=== PATIENT | female | born 1990 | race Caucasian/White ===

== ENCOUNTER 2022-09-15 02:32 | Emergency (ER) | payer MEDICAID, SELFPAY ==
[2022-09-15 02:36] VITALS: BP 122/76; PULSE 110; RESP 16; TEMP 36.6; O2SAT 99; BMI 24.3
--- NOTE | 2022-09-15 03:09 | ED.VIS.FEGU ---
HPI HPI - Female History of Present Illness Chief Complaint: Vag Bleeding Informant: patient Pain Pain: Positive for Pelvic Pain Onset: Hours (several) Context: Gradual Onset Timing: Intermittent Quality: Positive for Aching Location: - (R pelvis) Current Severity: Gone Maximum Severity: Mild Worsened by: - (nothing) Relieved by: - (nothing in particular) Bleeding Issue: Positive for Vaginal bleeding Onset: Hours (several) Context: Gradual Onset Timing: Continuous Current Severity: Mild Maximum Severity: Mild Associated Symptoms Associated Symptoms: Negative for Dysuria, Frequency or Urgency Test: Positive, Urine and Home P: 1 Narrative Narrative: Patient had missed her menstrual cycle this past week and had a positive test at home 2 days ago. Tonight she started having some vaginal bleeding and some intermittent right pelvic pain. She denies any lightheadedness or near syncope or other systemic symptoms. No recent illness. No recent fall or injury. [facility] Medical History Ovarian cyst Home Medications dextroamphetamine-amphetamine 10 mg tablet 10 mg PO TID 09/15/22 [History Last Taken Unknown] metoclopramide HCl 10 mg tablet 10 mg PO Q6H PRN nausea or migraine #20 tabs 09/15/22 [Rx Last Taken Unknown] vits no.124-ferrous fum 27 mg iron-folic acid 800 mcg tablet ( Vitamin) 1 tab PO DAILY #30 tabs 09/15/22 [Rx Last Taken Unknown] Allergy/AdvReac Type Severity Reaction Status Date / Time metronidazole [From Flagyl] Allergy Hives Verified 09/15/22 02:39 Social History Smoking Status: Current every day smoker tobacco type: cigarettes ROS ROS ED Constitutional Constitutional ED: Denies chills or fever(s) Eyes Eyes: Denies change in vision or diplopia ENT ENT ED: Denies rhinorrhea or sore throat Cardiovascular Cardiovascular: Denies chest pain or palpitations Respiratory/Chest Respiratory/Chest: Denies cough or dyspnea Gastrointestinal Gastrointestinal: Reports abdominal pain and nausea; Denies diarrhea or vomiting Genitourinary Genitourinary ED: Reports as per HPI and vaginal bleeding; Denies dysuria or hematuria Musculoskeletal Musculoskeletal: Denies back pain or neck pain Integumentary Denies abscess or rash Neurologic Neurologic: Denies headache(s), paresthesias or weakness Psychiatric Psychiatric: Denies anxiety or suicidal thoughts EXAM Physical Exam Const Vital Signs: 09/15/22 02:36 09/15/22 05:07 Temperature 97.9 F Temperature Source Oral Pulse Rate 110 H 88 Respiratory Rate 16 18 Blood Pressure 122/76 H 120/72 Blood Pressure Mean 91 88 Pulse Ox 99 99 Oxygen Delivery Method Room Air Room Air Positive well nourished and well developed General Appearance ED: well developed and NAD HEENT Reports moist mucous membranes normocephalic and atraumatic Eyes PERRL and EOMs intact bilaterally Neck full ROM and supple Resp normal respiratory effort and clear to auscultation bilaterally Cardio regular rate, regular rhythm and no murmurs GI non-tender and non-distended Auscultation: normoactive bowel sounds Palpation: soft Speculum Exam - Vagina: vaginal bleeding Back/Spine no CVA tenderness General Back: other FROM Extremity normal to inspection General Extremety ED: Negative for edema, pulses abnormal or tenderness General Extremity: Negative for edema or pulses abnormal Neuro oriented x3, CN's II-XII intact bilaterally and no sensory deficits noted Sensorium / Orientation: awake and alert Motor Exam: strength 5/5 throughout Psych Mood & Affect: anxious; Negative for depressed or tearful Skin no rashes or lesions noted and no wounds MDM MDM MDM Narrative Medical decision making narrative: We have no prior blood bank records on this patient, she showed me a type and screen/crossmatch from an outside hospital visit when she needed a transfusion remotely, it shows that her blood type is a positive. Therefore RhoGAM is not indicated. I started by doing a bedside OB ultrasound, which I performed and interpreted by myself; I do not see any abnormal status of the uterus, I see no signs of , there is no clear double decidual sign. I can see nothing obvious in the adnexa but this is a transabdominal evaluation. Therefore she will need a transvaginal ultrasound by radiology after seeing her quantitative hCG which is quite high at 6189. Therefore, ultrasound was called in for stat in order to evaluate for the possibility of an ectopic . My interpretation of the results are below, as confirmed by radiology. There is a single live intrauterine with gestational sac, consistent with exactly her dates of 5 weeks and 4 days. There is also a tiny subchorionic hemorrhage and no radiographic evidence of an ectopic at this time, but all of this is consistent with the cause of her vaginal bleeding being a subchorionic hemorrhage. Patient is reassured and I am comfortable discharging her home to follow-up with her family doctor, who she states she sees for obstetric issues. Prescribed and nausea medicine, she developed a migraine while she was here and was nauseated so was given IV Reglan 5 mg which really helped her feel better. Lab Data Attestation: I reviewed the patient's lab results. Labs: Laboratory Results - last 24 hr 09/15/22 03:23 HCG, Quant 6189 H Radiography Diagnostic Testing: Clinical Impression(s) from Imaging Studies Obstetrics Ultrasound 09/15/22 04:21 IMPRESSION: 1. Single intrauterine gestational sac, consistent with gestational age of 5 weeks, 4 days and an estimated date of delivery of 05/14/2023. 2. No visualized pole or possibly due to early gestational age. Suggest follow-up exam to assess gestational viability. 3. Tiny subchorionic hemorrhage. 4. Small amount of free fluid in the right adnexal region and minimal free fluid in the posterior cul-de-sac of the pelvis. Electronically Signed: Nas Mina MD at 6:24 EST Reading Location ID and State: [facility] / [place] , Service support , Discharge Plan Triage Chief Complaint: Vag Bleeding ED Provider: Juan Pablo Tyson Dx/Rx/DC Orders Clinical Impression: Threatened in early , Headache, migraine Instructions: ED Possible Miscarriage ... Prescriptions: New metoclopramide HCl [metoclopramide HCl] 10 MG tablet 10 mg PO Q6H PRN (Reason: nausea or migraine) Qty: 20 0RF Vitamin 27 mg iron- 800 mcg tablet 1 tab PO DAILY Qty: 30 0RF No Action dextroamphetamine-amphetamine 10 mg tablet 10 mg PO TID Label Comments: take 1 tablet by mouth every morning and 2 tablets AT NOON Primary Care Provider: Rosa Valdez NP Referrals: Rosa Valdez NP, MEDICAL TECHNICIAN ASSISTANT-C [Primary Care Provider] - 1-2 Weeks Disposition Disposition: Home, Self Care
[2022-09-15 04:14] LABS: hCG Titer Quant., Serum 6189 mIU/mL (1-3)
--- NOTE | 2022-09-15 04:21 | US_ITS ---
EXAM: US , TRANSVAGINAL CLINICAL INDICATION: light spotting light spotting. LMP 08/06/2022. This would correspond with a gestational age of 5 weeks, 5 days and an estimated date of delivery of 05/13/2023. TECHNIQUE: Real-time transvaginal obstetrical ultrasound of the maternal pelvis and a first trimester with image documentation. Transvaginal imaging was used for better evaluation of the fetus and adnexa. This report was created using [employer] report generation technology. COMPARISON: None. FINDINGS: GESTATION: There is a single intrauterine gestational sac with mean diameter of 7.5 mm. This corresponds with a gestational age of 5 weeks, 4 days. The yolk sac is not well-visualized. There is tentative identification of a 2 mm yolk sac. HUMA: Estimated date of delivery 05/14/2023. PLACENTA/AMNIOTIC FLUID: There is a tiny subchorionic hemorrhage inferior to the gestational sac. UTERUS/CERVIX: The uterus is anteverted and measures 7.8 x 5.8 x 4.7 cm. There were nabothian cysts in the cervix.. No myometrial mass. OVARIES: The right ovary measures 2.8 x 1.7 x 2.3 cm. The left ovary measures 3.7 x 2.8 x 1.8 cm. There is a 2.1 cm complex left ovarian cyst with internal echoes and increased surrounding vascular flow. This probably represent a hemorrhagic corpus luteum cyst. No follow-up evaluation is necessary. FREE FLUID: There is minimal free fluid in the posterior cul-de-sac of the pelvis as well as mild free fluid in the right adnexal region. US/Transvaginal w/Preg US IMPRESSION: 1. Single intrauterine gestational sac, consistent with gestational age of 5 weeks, 4 days and an estimated date of delivery of 05/14/2023. 2. No visualized pole or possibly due to early gestational age. Suggest follow-up exam to assess gestational viability. 3. Tiny subchorionic hemorrhage. 4. Small amount of free fluid in the right adnexal region and minimal free fluid in the posterior cul-de-sac of the pelvis. Electronically Signed: Nas Mina MD at 6:24 EST ,
[2022-09-15] MEDS: Metoclopramide 10 MG/2 ML Vial 5 MG IV (05:01)
[2022-09-15 05:07] VITALS: BP 120/72; PULSE 88; RESP 18; O2SAT 99
[2022-09-15 06:43] VITALS: PULSE 87; RESP 16; O2SAT 96
== END 2022-09-15 06:44 | disposition home or self-care (01) ==
PROVIDERS: Emergency Provider Emergency Medicine; PCP Nurse Practitioner Family; Visit Provider Emergency Medicine
DX: O20.0 Threatened abortion (principal); O99.331 Smoking (tobacco) complicating pregnancy, first trimester; O99.351 Diseases of the nervous system complicating pregnancy, first trimester; F17.210 Nicotine dependence, cigarettes, uncomplicated; G43.909 Migraine, unspecified, not intractable, without status migrainosus; Z3A.00 Weeks of gestation of pregnancy not specified
CPT/HCPCS: 36415; 76817; 84702; 96374; 99283